=== PATIENT | female | born 2005 | race Hispanic/Latino ===

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

== ENCOUNTER 2024-02-06 20:12 | Emergency (ER) | payer OTHER ==
[~2024-02-06] VITALS: Ht 154.9 cm; Wt 82.1 kg
[~2024-02-06 20:12] MED LIST changes: +AMOX1TAB16 PO
[2024-02-06 20:35] LABS: APPEARANCE,URINE TURBID (CLEAR); BILIRUBIN,URINE NEGATIVE (NEGATIVE); COLOR,URINE YELLOW (YELLOW); GLUCOSE, URINE (UA) NEGATIVE (NEGATIVE); KETONES,URINE NEGATIVE (NEGATIVE); LEUKOCYTE ESTERASE ,URINE 500 Leu/uL (NEGATIVE); NITRATE,URINE NEGATIVE (NEGATIVE); OCCULT BLOOD,URINE MODERATE (NEGATIVE); PROTEIN,URINE 30 mg/dL (NEGATIVE); UROBILINOGEN,URINE 0.2 mg/dL (0.2-1.0)
[2024-02-06 20:43] LABS: ADD UA MICROSCOPIC YES; HCG,QUALITATIVE URINE POSITIVE (NEGATIVE)
[2024-02-06 20:53] LABS: BACTERIA,URINE FEW /HPF (None Seen); MUCUS,URINE RARE LPF (None Seen); NON-SQUAMOUS EPITHELIAL CELL 1 /HPF (0-2); RBC,URINE 51-100 /HPF (0-1); SQUAMOUS EPITHELIAL CELL,UR FEW /HPF (0-2); WBC CLUMP FEW /HPF (0-1); WBC,URINE >100 /HPF (0-1)
[2024-02-06 21:09] LABS: BASOPHILS # (AUTO) 0.04 K/uL (0.00-0.20); BASOPHILS % (AUTO) 0.4 % (0.0-5.0); IMMATURE GRANULOCYTE ABSOLUTE 0.04 K/uL (0-1); LYMPHOCYTES # (AUTO) 1.5 K/uL (1.0-4.8); LYMPHOCYTES % (AUTO) 13.3 % (21.0-51.0); MEAN CORPUSCULAR HEMOGLOBIN 24.5 pg (27.0-33.0); MEAN CORPUSCULAR HGB CONC 32.2 g/dL (32.0-36.0); MEAN CORPUSCULAR VOLUME 76.3 fL (80-100); MONOCYTES % (AUTO) 9.1 % (3.0-13.0); NEUTROPHILS # (AUTO) 8.5 K/uL (1.8-7.7); NEUTROPHILS % (AUTO) 76.8 % (40.0-77.0); PLATELET COUNT (AUTO) 344 K/uL (130-400); RED BLOOD CELL COUNT(AUTO) 4.85 MIL/uL (4.00-5.50); RED CELL DISTRIBUTION WIDTH 15.5 % (11.0-15.5)
[2024-02-06] MEDS: ONDANSETRON 4MG INJ IVP ONE (21:12)
[2024-02-06 21:13] VITALS: TEMP 100.8
[2024-02-06] MEDS: ACETAMINOPHEN 500 MG TABLET PO ONE (21:13)
[2024-02-06] MEDS: MORPHINE 2 MG SYG IVP ONE (21:14)
[2024-02-06] MEDS: 0.9%NACL 1000ML 1,000 ML IV ONE (21:15)
[2024-02-06 21:21] LABS: CREATININE 0.8 mg/dL (0.5-1.0); POTASSIUM 3.3 mmol/L (3.5-5.1)
[2024-02-06 21:26] LABS: ALBUMIN 3.6 g/dL (3.5-5.0); BILIRUBIN,TOTAL 0.3 mg/dL (0.2-1.0); TOTAL PROTEIN, SERUM 8.6 g/dL (6.0-8.3)
[2024-02-06] MEDS: CEFTRIAXONE 1G VIAL IVPB ONE (22:07)
[2024-02-07] MEDS ORDERED: CEPH500B PO (01:10)
[2024-02-07 01:25] VITALS: BP 128/72; PULSE 72; RESP 16; O2SAT 100
== END 2024-02-07 01:28 | disposition home or self-care (01) ==
LOC: EDH 20:12
DX: O20.0 Threatened abortion (principal); O20.9 Hemorrhage in early pregnancy, unspecified; O26.891 Other specified pregnancy related conditions, first trimester; R50.9 Fever, unspecified; K80.20 Calculus of gallbladder without cholecystitis without obstruction; E87.6 Hypokalemia; O23.41 Unspecified infection of urinary tract in pregnancy, first trimester; N39.0 Urinary tract infection, site not specified; O16.1 Unspecified maternal hypertension, first trimester; Z3A.01 Less than 8 weeks gestation of pregnancy
CPT/HCPCS: 99285; 76705 ×2; 96374; 76801; 96375; 96361; 80053; 84702; 83690; 85025; 86900; 86901; 87040 ×2; 87077; 87088; 87186; 83605 ×2; 81001; 81025; 36415 ×2; 84145; J2270; J7030; J0696; J2405

== ENCOUNTER 2024-09-17 15:36 | Emergency (ER) | payer SELFPAY ==
[~2024-09-17] VITALS: Ht 154.9 cm; Wt 81.2 kg
[~2024-09-17 15:36] MED LIST changes: +CEPH500B PO
[2024-09-17 16:18] LABS: APPEARANCE,URINE CLOUDY (CLEAR); BILIRUBIN,URINE NEGATIVE (NEGATIVE); COLOR,URINE LIGHT-YELLOW (YELLOW); GLUCOSE, URINE (UA) NEGATIVE (NEGATIVE); HCG,QUALITATIVE URINE POSITIVE (NEGATIVE); KETONES,URINE NEGATIVE (NEGATIVE); LEUKOCYTE ESTERASE ,URINE 75 Leu/uL (NEGATIVE); NITRATE,URINE 2+ (NEGATIVE); OCCULT BLOOD,URINE NEGATIVE (NEGATIVE); PH,URINE 6.5 (5.0-8.0); PROTEIN,URINE NEGATIVE (NEGATIVE); UROBILINOGEN,URINE 0.2 mg/dL (0.2-1.0)
[2024-09-17 16:19] LABS: ADD UA MICROSCOPIC YES
[2024-09-17 16:23] LABS: BACTERIA,URINE FEW /HPF (None Seen); MUCUS,URINE RARE LPF (None Seen); RBC,URINE 0-1 /HPF (0-1); SQUAMOUS EPITHELIAL CELL,UR RARE /HPF (0-2); YEAST,URINE BUDDING FEW /HPF (None Seen)
[2024-09-17 16:39] LABS: BASOPHILS # (AUTO) 0.04 K/uL (0.00-0.20); BASOPHILS % (AUTO) 0.5 % (0.0-5.0); EOSINOPHILS # (AUTO) 0.04 K/uL (0.00-0.70); EOSINOPHILS % (AUTO) 0.5 % (0.0-8.0); HEMATOCRIT 40.4 % (36-48); IMMATURE GRANULOCYTE ABSOLUTE 0.03 K/uL (0-1); LYMPHOCYTES # (AUTO) 1.8 K/uL (1.0-4.8); LYMPHOCYTES % (AUTO) 24.1 % (21.0-51.0); MEAN CORPUSCULAR HEMOGLOBIN 25.4 pg (27.0-33.0); MEAN CORPUSCULAR HGB CONC 32.4 g/dL (32.0-36.0); MEAN CORPUSCULAR VOLUME 78.3 fL (80-100); MONOCYTES # (AUTO) 0.5 K/uL (0.1-1.0); MONOCYTES % (AUTO) 7.1 % (3.0-13.0); NEUTROPHILS # (AUTO) 4.9 K/uL (1.8-7.7); NEUTROPHILS % (AUTO) 67.4 % (40.0-77.0); PLATELET COUNT (AUTO) 333 K/uL (130-400); RED BLOOD CELL COUNT(AUTO) 5.16 MIL/uL (4.00-5.50); RED CELL DISTRIBUTION WIDTH 15.7 % (11.0-15.5); WHITE BLOOD COUNT (AUTO) 7.3 K/uL (4.8-10.8)
[2024-09-17 16:50] LABS: CREATININE 0.6 mg/dL (0.5-1.0); POTASSIUM 3.7 mmol/L (3.5-5.1)
[2024-09-17 16:57] LABS: ALBUMIN 3.6 g/dL (3.5-5.0); BILIRUBIN,DIRECT 0.1 mg/dL (0.0-0.3); BILIRUBIN,TOTAL 0.6 mg/dL (0.2-1.0); TOTAL PROTEIN, SERUM 8.2 g/dL (6.0-8.3)
--- NOTE | 2024-09-17 17:56 | ERN ---
ED Note History of Present Illness Stated Complaint: ABDOMINAL PAIN,NAUSEA, MULTIPLE COMPLAINTS Chief Complaint: Abdominal Pain Time Seen by MD: 15:57 Dictation: 18-year-old female presents to the ED for evaluation of abdominal pain onset last night. Patient reports nausea, vomiting, but denies any fever, vaginal bleeding or other associated symptoms at this time.. Allergies: Coded Allergies: No Known Allergies (Unverified Allergy, Unknown, 04/26/22) Home Meds Active Scripts Cephalexin Monohydrate (Keflex) 500 Mg Cap, 500 MG PO BID for 5 Days, #10 CAP Prov:CYNTHIA CARRERA MD 02/07/24 Amoxicillin/Potassium Clav (Amox Tr-K Clv 875-125 mg Tab) 875 Mg-125 Mg Tablet, 1 EACH PO BID for 7 Days, #14 TAB 0 Refills Prov:LUZMA PIERRE NP 12/11/23 Ibuprofen (Ibuprofen) 400 Mg Tablet, 400 MG PO Q6HPRN, #15 TAB 0 Refills Prov:JOYCE BRENNAN NP 02/27/23 Amoxicillin/Potassium Clav (Augmentin 500-125 Tablet) 1 Each Tablet, 1 EACH PO TID for 7 Days, #21 TAB Prov:JOYCE BRENNAN NP 02/27/23 Ibuprofen (Ibuprofen) 600 Mg Tablet, 600 MG PO Q6H PRN for PAIN, #15 TAB Prov:KATHERINE DEL CASTILLOP 10/19/22 Sulfamethoxazole/Trimethoprim (Bactrim Ds Tablet) 1 Each Tablet, 1 TAB PO BID for 7 Days, #14 TAB 0 Refills Prov:KATHERINE DEL CASTILLOP 10/19/22 Acetaminophen with Codeine (Acetaminophen-Cod #3 Tablet) 1 Each Tablet, 1-2 TAB PO Q6H PRN for woody anal abscess, #20 TAB Prov:ANN GAINES 04/26/22 Clindamycin HCl (Clindamycin HCl) 300 Mg Capsule, 1 CAP PO QID for 10 Days, #40 CAP 0 Refills Prov:ANN GAINES 04/26/22 Past Medical History Past Medical History: Hypertension Surgical History: None Family History: Negative Social History: Negative History: Not Applicable LMP: Jun 12, 2024 : 1 Para: 0 Review of System Dictation Constitutional: Negative for fever,chills, and weight loss Eyes: Negative for injury, pain,redness, and discharge ENT: Negative for injury,pain or swelling Cardiovascular: Negative for chest pain, palpitations, and edema Respiratory: Negative for shortness of breath, cough, and wheezing, Abdomen/GI: Positive for lower abdominal pain, nausea, vomiting negative for diarrhea, and constipation Back: Negative for injury and pain : Negative for injury, bleeding and discharge MS/Extremity: Negative for injury and deformity Skin: Negative for rash, and discoloration Neuro: Negative for headache, weakness, numbness, tingling, and seizure Psych: Negative for suicide ideation, homicidal ideation, and hallucinations Initial Vital Sign VS Vital Signs Date Time Temp Pulse Resp B/P (MAP) Pulse Ox O2 Delivery O2 Flow Rate FiO2 09/17/24 15:52 98.4 82 16 174/98 96 Room Air 0 Physical Exam Dictation General: awake, alert, NAD Head/Face: Normocephalic, atraumatic Eyes: PERRL, EOMI, vision at baseline ENT: oral cavity clear, TMs clear, no signs of infection Neck: Trachea midline, supple, no nuchal rigidity Cardiovascular: RRR, normal S1/S2, No MRGs, no JVD Respiratory: CTAB, no respiratory distress, No rales or wheezes Abdomen: Soft, non-tender, non-distended, normal bowel sounds, no guarding or rebound. Skin: Warm, dry, normal turgor, no rash MS/Extremity: Pulses equal, no cyanosis, neurovascular intact, FROM Neuro: COAx4, GCS 15, strength 5/5, CN 2-12 intact, normal cerebellar exam, normal gait, Psych: Normal behavior, mood, and affect normal Results (Laboratory/Radiology) Laboratory/Radiology Laboratory Tests Test 09/17/24 15:58 09/17/24 16:24 Urine Color LIGHT-YELLOW (YELLOW) Urine Appearance CLOUDY (CLEAR) H Urine pH 6.5 (5.0-8.0) Urine Specific [place] 1.020 (1.001-1.031) Urine Protein NEGATIVE mg/dL (NEGATIVE) Urine Glucose (UA) NEGATIVE mg/dL (NEGATIVE) Urine Ketones NEGATIVE mg/dL (NEGATIVE) Urine Occult Blood NEGATIVE (NEGATIVE) Urine Nitrate 2+ (NEGATIVE) H Urine Bilirubin NEGATIVE mg/dL (NEGATIVE) Urine Urobilinogen 0.2 mg/dL (0.2-1.0) Urine Leukocyte Esterase 75 Kaylyn/uL (NEGATIVE) H Urine RBC 0-1 /HPF (0-1) Urine WBC 11-25 /HPF (0-1) H Urine Squamous Epithelial Cells RARE /HPF (0-2) Urine Bacteria FEW /HPF (None Seen) Urine Yeast FEW /HPF (None Seen) Urine HCG, Qualitative POSITIVE (NEGATIVE) H White Blood Count 7.3 K/uL (4.8-10.8) Red Blood Count 5.16 MIL/uL (4.00-5.50) Hemoglobin 13.1 g/dL (12.0-16.0) Hematocrit 40.4 % (36-48) Mean Corpuscular Volume 78.3 fL (80-100) L Mean Corpuscular Hemoglobin 25.4 pg (27.0-33.0) L Mean Corpuscular Hemoglobin Concent 32.4 g/dL (32.0-36.0) Red Cell Distribution Width 15.7 % (11.0-15.5) H Platelet Count 333 K/uL (130-400) Mean Platelet Volume 10.0 fL (7.5-10.5) Immature Granulocyte % (Auto) 0.4 % (0-1) Neutrophils (%) (Auto) 67.4 % (40.0-77.0) Lymphocytes (%) (Auto) 24.1 % (21.0-51.0) Monocytes (%) (Auto) 7.1 % (3.0-13.0) Eosinophils (%) (Auto) 0.5 % (0.0-8.0) Basophils (%) (Auto) 0.5 % (0.0-5.0) Neutrophils # (Auto) 4.9 K/uL (1.8-7.7) Lymphocytes # (Auto) 1.8 K/uL (1.0-4.8) Monocytes # (Auto) 0.5 K/uL (0.1-1.0) Eosinophils # (Auto) 0.04 K/uL (0.00-0.70) Basophils # (Auto) 0.04 K/uL (0.00-0.20) Absolute Immature Granulocyte (auto 0.03 K/uL (0-1) Nucleated Red Blood Cells 0.0 % (0.0-0.19) Sodium Level 137 mmol/L (136-145) Potassium Level 3.7 mmol/L (3.5-5.1) Chloride Level 101 mmol/L (101-111) Carbon Dioxide Level 25 mmol/L (21-32) Blood Urea Nitrogen 5 mg/dL (7-18) L Creatinine 0.6 mg/dL (0.5-1.0) Glomerular Filtration Rate Calc 133 mL/min (>90) Random Glucose 86 mg/dL (70-105) Total Calcium 9.3 mg/dL (8.5-10.1) Total Bilirubin 0.6 mg/dL (0.2-1.0) Direct Bilirubin 0.1 mg/dL (0.0-0.3) Aspartate Amino Transf (AST/SGOT) 15 U/L (10-37) Alanine Aminotransferase (ALT/SGPT) 18 U/L (12-78) Alkaline Phosphatase 96 U/L (50-136) Total Protein 8.2 g/dL (6.0-8.3) Albumin 3.6 g/dL (3.5-5.0) Lipase 23 U/L (16-77) Labs Reviewed?: Yes Ultrasound Comment: As per restoration technician patient is six weeks gestation. ED Course ED Course Orders Procedure Category Date Status Time Urinalysis Profile LAB 09/17/24 Complete 15:59 ,Urine Test LAB 09/17/24 Complete 15:59 Cbc With Differential LAB 09/17/24 Complete 16:03 Hepatic Function Panel LAB 09/17/24 Complete 16:03 Basic Metabolic Panel LAB 09/17/24 Complete 16:03 Lipase LAB 09/17/24 Complete 16:03 Culture Urine TOÑA 09/17/24 In Process 16:19 Hcg,Quantitative LAB 09/17/24 In Process 17:39 Us Ob <14 Weeks US 09/17/24 Resulted 17:39 Vital Signs Date Time Temp Pulse Resp B/P (MAP) Pulse Ox O2 Delivery O2 Flow Rate FiO2 09/17/24 15:52 98.4 82 16 174/98 96 Room Air 0 Medical Decision Making MDM MDM: Differential diagnosis: Abdominal pain, , threatened Risk of complication and/or morbidity or mortality of patient management: None Medications-Per medication reconciliation Need for hospitalization: Patient does not meet criteria for hospitalization. Need for emergency major/minor surgery: No There are no social concerns with this patient. I independently interpreted the test that were performed, results were reviewed by me and considered findings on radiology if ordered. Medical management and examination interpretation discussions were had by me with other qualified healthcare professionals as indicated for the patient's care. DX & DISP Disposition: Discharge Departure Impression: Primary Impression: Threatened Condition: Stable Referrals: SELF,REFERRAL (PCP) GRETTA DAWKINS MD Time of Disposition: 18:33 ELIZABETH FERREIRA MD Sep 17, 2024 17:56
--- NOTE | 2024-09-17 18:33 | HMCIMG ---
US OB <14 WEEKS HISTORY: Pelvic pain COMPARISON: None TECHNIQUE: Obstetrical ultrasound study was performed. FINDINGS: The uterus measures 9.5 x 6.5 x 4.5 centimeter. Right ovary measures 2.5 x 2 x 1.8 centimeter. Left ovary measures 2.9 x 1.4 x 2.5 centimeter. There is intrauterine saclike structure. In a patient with positive test, differential diagnosis would include early versus ectopic versus missed . Estimated gestational age by sac size is 6 weeks and 2 days. Beta-hCG correlation is recommended. No fluid is seen in the cul-de-sac. IMPRESSION: 1. There is intrauterine saclike structure. In a patient with positive test, differential diagnosis would include early versus ectopic versus missed . Estimated gestational age by sac size is 6 weeks and 2 days. Beta-hCG correlation is recommended.
--- NOTE | 2024-09-17 18:39 | NUR ---
pt arrived ft at this time
[2024-09-17 18:51] VITALS: BP 172/90; PULSE 80; RESP 16; TEMP 98.3; O2SAT 98
== END 2024-09-17 19:09 | disposition home or self-care (01) ==
LOC: EDH 15:36
DX: O20.0 Threatened abortion (principal); Z3A.01 Less than 8 weeks gestation of pregnancy
CPT/HCPCS: 36415; 76801; 80048; 80076; 81001; 81025; 83690; 84702; 85025; 87086; 87186; 99284

== ENCOUNTER 2024-09-29 20:53 | Emergency (ER) | payer MEDICAID ==
[~2024-09-29] VITALS: Ht 154.9 cm; Wt 78.5 kg
[2024-09-29 20:54] VITALS: TEMP 98.3
--- NOTE | 2024-09-29 21:07 | NUR ---
PT CARE ASSUMED AT THIS TIME
--- NOTE | 2024-09-29 21:29 | ERN ---
ED Note History of Present Illness Stated Complaint: ABDOMINAL PAIN, 7WKS Chief Complaint: OB<20 weeks gest. Time Seen by MD: 21:03 Dictation: This is a 18-year-old female who is approximately 8 weeks presented to the emergency room with suprapubic lower abdominal pain associated with vaginal bleeding. She reports it as a cramping pain that started around 3:00 p.m. and since then she has used 2 pads. The bleeding initially started on 09/26/2024 at which time it was simple spotting. She is 2 para 1. She denied any such problems during her 1st . Temperature 98.3 pulse 82 respirations 20 blood pressure 149/96 with a pulse o ximetry of 98% on room air Ultrasound there was done on 09/17/2024 shows a fetus and gestation of 6 weeks and 2 days. She was actively cramping with large amounts of vaginal bleeding seeping through the clothes and sheets Allergies: Coded Allergies: No Known Allergies (Unverified Allergy, Unknown, 04/26/22) Home Meds Active Scripts Acetaminophen with Codeine (Acetaminophen-Cod #3 Tablet) 300 Mg-30 Mg Tablet, 1 TAB PO Q6HPRN PRN for pain for 5 Days, #20 TAB 0 Refills Prov:ANDREA TY MD 09/30/24 Cephalexin Monohydrate (Keflex) 500 Mg Cap, 500 MG PO BID for 5 Days, #10 CAP Prov:CYNHTIA CARRERA MD 02/07/24 Amoxicillin/Potassium Clav (Amox Tr-K Clv 875-125 mg Tab) 875 Mg-125 Mg Tablet, 1 EACH PO BID for 7 Days, #14 TAB 0 Refills Prov:LUZMA PIERRE NP 12/11/23 Ibuprofen (Ibuprofen) 400 Mg Tablet, 400 MG PO Q6HPRN, #15 TAB 0 Refills Prov:JOYCE BRENNAN NP 02/27/23 Amoxicillin/Potassium Clav (Augmentin 500-125 Tablet) 1 Each Tablet, 1 EACH PO TID for 7 Days, #21 TAB Prov:JOYCE BRENNAN NP 02/27/23 Ibuprofen (Ibuprofen) 600 Mg Tablet, 600 MG PO Q6H PRN for PAIN, #15 TAB Prov:KATHERINE DEL CASTILLO 10/19/22 Sulfamethoxazole/Trimethoprim (Bactrim Ds Tablet) 1 Each Tablet, 1 TAB PO BID for 7 Days, #14 TAB 0 Refills Prov:BANDAR DEL CASTILLOGAUDENCIO LINO 10/19/22 Acetaminophen with Codeine (Acetaminophen-Cod #3 Tablet) 1 Each Tablet, 1-2 TAB PO Q6H PRN for woody anal abscess, #20 TAB Prov:GAINESANN PA 04/26/22 Clindamycin HCl (Clindamycin HCl) 300 Mg Capsule, 1 CAP PO QID for 10 Days, #40 CAP 0 Refills Prov:GAINESANN PA 04/26/22 Past Medical History Past Medical History: No Pertinent History Surgical History: Tonsillectomy Family History: Negative Social History: Negative History: Not Applicable LMP: May 31, 2024 : 2 Para: 1 RN Note Reviewed/Agreed w/PFSH: Yes Review of System Dictation Constitutional: Negative for fever,chills, and weight loss Eyes: Negative for injury, pain,redness, and discharge ENT: Negative for injury,pain or swelling Cardiovascular: Negative for chest pain, palpitations, and edema Respiratory: Negative for shortness of breath, cough, and wheezing, Abdomen/GI: Negative for abdominal pain, nausea, vomiting, diarrhea, and constipation Back: Negative for injury and pain : Positive for vaginal bleeding and suprapubic pain MS/Extremity: Negative for injury and deformity Skin: Negative for rash, and discoloration Neuro: Negative for headache, weakness, numbness, tingling, and seizure Psych: Negative for suicide ideation, homicidal ideation, and hallucinations Initial Vital Sign VS Vital Signs Date Time Temp Pulse Resp B/P (MAP) Pulse Ox O2 Delivery O2 Flow Rate FiO2 09/29/24 20:54 98.2 82 20 149/96 100 Room Air 09/29/24 21:07 0 21 Physical Exam Dictation General: awake, alert, NAD overweight Head/Face: Normocephalic, atraumatic Eyes: PERRL, EOMI, vision at baseline ENT: oral cavity clear, TMs clear, no signs of infection Neck: Trachea midline, supple, no nuchal rigidity Cardiovascular: RRR, normal S1/S2, No MRGs, no JVD Respiratory: CTAB, no respiratory distress, No rales or wheezes Abdomen: Soft, non-tender, non-distended, normal bowel sounds, no guarding or rebound. Skin: Warm, dry, normal turgor, no rash -vaginal bleeding. Patient was extremely uncomfortable with any pelvic exam. MS/Extremity: Pulses equal, no cyanosis, neurovascular intact, FROM Neuro: COAx4, GCS 15, strength 5/5, CN 2-12 intact, normal cerebellar exam, normal gait, Psych: Normal behavior, mood, and affect normal Extremities-trace edema without any palpable cords, Homans sign is negative Results (Laboratory/Radiology) Laboratory/Radiology Laboratory Tests Test 09/29/24 21:28 09/29/24 22:25 White Blood Count 7.2 K/uL (4.8-10.8) Red Blood Count 4.83 MIL/uL (4.00-5.50) Hemoglobin 12.2 g/dL (12.0-16.0) Hematocrit 37.7 % (36-48) Mean Corpuscular Volume 78.1 fL (80-100) L Mean Corpuscular Hemoglobin 25.3 pg (27.0-33.0) L Mean Corpuscular Hemoglobin Concent 32.4 g/dL (32.0-36.0) Red Cell Distribution Width 15.4 % (11.0-15.5) Platelet Count 334 K/uL (130-400) Mean Platelet Volume 10.0 fL (7.5-10.5) Immature Granulocyte % (Auto) 0.7 % (0-1) Neutrophils (%) (Auto) 56.1 % (40.0-77.0) Lymphocytes (%) (Auto) 31.8 % (21.0-51.0) Monocytes (%) (Auto) 9.5 % (3.0-13.0) Eosinophils (%) (Auto) 1.3 % (0.0-8.0) Basophils (%) (Auto) 0.6 % (0.0-5.0) Neutrophils # (Auto) 4.0 K/uL (1.8-7.7) Lymphocytes # (Auto) 2.3 K/uL (1.0-4.8) Monocytes # (Auto) 0.7 K/uL (0.1-1.0) Eosinophils # (Auto) 0.09 K/uL (0.00-0.70) Basophils # (Auto) 0.04 K/uL (0.00-0.20) Absolute Immature Granulocyte (auto 0.05 K/uL (0-1) Nucleated Red Blood Cells 0.0 % (0.0-0.19) Sodium Level 135 mmol/L (136-145) L Potassium Level 3.3 mmol/L (3.5-5.1) L Chloride Level 102 mmol/L (101-111) Carbon Dioxide Level 28 mmol/L (21-32) Blood Urea Nitrogen 6 mg/dL (7-18) L Creatinine 0.8 mg/dL (0.5-1.0) Glomerular Filtration Rate Calc 109 mL/min (>90) Random Glucose 98 mg/dL (70-105) Total Calcium 8.9 mg/dL (8.5-10.1) Serum Test, Qualitative POSITIVE (NEGATIVE) H Urine Color LIGHT-YELLOW (YELLOW) Urine Appearance CLEAR (CLEAR) Urine pH 6.0 (5.0-8.0) Urine Specific [place] 1.010 (1.001-1.031) Urine Protein NEGATIVE mg/dL (NEGATIVE) Urine Glucose (UA) NEGATIVE mg/dL (NEGATIVE) Urine Ketones NEGATIVE mg/dL (NEGATIVE) Urine Occult Blood LARGE (NEGATIVE) H Urine Nitrate NEGATIVE (NEGATIVE) Urine Bilirubin NEGATIVE mg/dL (NEGATIVE) Urine Urobilinogen 0.2 mg/dL (0.2-1.0) Urine Leukocyte Esterase NEGATIVE Kaylyn/uL Urine RBC TNTC /HPF (0-1) H Urine WBC 0-1 /HPF (0-1) Urine Squamous Epithelial Cells RARE /HPF (0-2) Urine Bacteria FEW /HPF (None Seen) Labs Reviewed?: Yes ED Course ED Course Orders Procedure Category Date Status Time Cbc With Differential LAB 09/29/24 Complete 21:13 Testing, LAB 09/29/24 Complete Serum Hcg 21:13 Us Ob <14 Weeks US 09/29/24 Taken 21:13 0.9%Nacl 1000ml (Ns PHA 09/29/24 Complete 1000ml) 21:30 Morphine 4mg Syg PHA 09/29/24 Complete (Morphine 4mg Syg) 21:30 Ondansetron 4mg Inj PHA 09/29/24 Complete (Zofran 4mg Inj) 21:30 Basic Metabolic Panel LAB 09/29/24 Complete 21:13 Urinalysis Profile LAB 09/29/24 Complete 21:13 Morphine 4mg Syg PHA 09/29/24 Complete (Morphine 4mg Syg) 23:00 Current Medications Medications (Trade) Dose Ordered Sig/Marge Route PRN Reason Start Time Stop Time Status Last Admin Dose Admin Morphine Sulfate (morPHINE 4MG SYG) 2 mg ONCE ONCE IVP 09/29/24 21:30 09/29/24 21:31 DC 09/29/24 21:39 Morphine Sulfate (morPHINE 4MG SYG) 4 mg ONCE ONCE IVP 09/29/24 23:00 09/29/24 23:02 DC 09/29/24 22:42 Ondansetron HCl (zoFRAN 4MG INJ) 4 mg ONCE ONCE IVP 09/29/24 21:30 09/29/24 21:31 DC 09/29/24 21:38 Sodium Chloride 1,000 ml @ 0 mls/hr ONCE ONCE IV 09/29/24 21:30 09/29/24 21:31 DC 09/29/24 21:38 Vital Signs Date Time Temp Pulse Resp B/P (MAP) Pulse Ox O2 Delivery O2 Flow Rate FiO2 09/30/24 01:01 76 19 118/96 99 Room Air* 0 09/29/24 23:40 95 19 119/69 99 Room Air* 0 21 09/29/24 22:44 86 19 117/96 99 Room Air* 0 21 09/29/24 21:07 98 19 142/91 99 Room Air* 0 09/29/24 20:54 98.2 82 20 149/96 100 Room Air We will perform diagnostic labs, advanced imaging and administer medications according to the patient's complaint. Once the results are available, will review and personally interpreted the labs to rule out any acute life- threatening emergency the trach require immediate intervention and treatment. I will then re-evaluate the patient after treatment and diagnostic exams have return to determine whether the patient requires any further testing, can safely be discharged home or need further admission to hospital for additional treatment and evaluation. 10:13 p.m. labs reviewed CBC showed a white count of 7.2 platelets 334, hemoglobin 12.2 BNP 7 showed a potassium of 3.3 creatinine 0.8 hCG test is positive OB ultrasound showed irregular heterogeneous 1.9 cm material and some blood versus a sac which is 1.5 x 1.2 x 1 cm. Cul-de-sac appeared normal the overall preliminary impression was that in the vaginal area there was irregular heterogeneous possible products of conception versus blood clot. Cervical canal open 12:15 a.m. I had a long discussion with the patient and her significant other and explained to them possibilities that this maybe a loss in process or perhaps subchorionic hemorrhage. Discharge to home to follow up with the Dr. Dawkins as outpatient once her Medicaid is processed or return to the emergency room with any new complaints. They both were agreeable Medical Decision Making MDM MDM: Differential diagnosis: Implantation bleeding, subchorionic hemorrhage, threat of Rationale: Tests considered and ordered secondary to shared decision making include: Previous outside records reviewed: Old ER visits. Risk of complication and/or morbidity or mortality of patient management: None Medications-Per medication reconciliation Need for hospitalization: Patient does not meet criteria for hospitalization. Need for emergency major/minor surgery: No There are no social concerns with this patient. Prescription drug management Prescriptions will include symptomatic care Patient's prior external medical records from other ER visits were reviewed by me as indicated. Prior testing and results from previous visits were reviewed. Prior tests were taken into account with medical decision making and resource utilization, independent historian/historians were used to obtain complete medical history. I independently interpreted the test that were performed, results were reviewed by me and considered findings on radiology if ordered. Medical management and examination interpretation discussions were had by me with other qualified healthcare professionals as indicated for the patient's care. Problem List Problem List: (1) Vaginal bleeding (2) Threatened DX & DISP Disposition: Discharge Departure Impression: Primary Impression: Threatened Additional Impression: Vaginal bleeding Condition: Stable Scripts Acetaminophen with Codeine (Acetaminophen-Cod #3 Tablet) 300 Mg-30 Mg Tablet 1 TAB PO Q6HPRN PRN for pain for 5 Days, #20 TAB 0 Refills Prov: ANDREA TY MD 09/30/24 Additional Instructions: Patient and the caregiver have been informed of all the diagnostic tests and the imaging conducted during the today's visit to the emergency room and has verbalized understanding of the results I have personally reviewed and interpreted all diagnostic exams performed here in the ER today as well as the vital signs documented by the nursing staff. The patient is now being discharged to home and should follow up with the primary care physician or the specialist as directed by the ER staff. Follow-up with primary care provider in 1 to 2 days. Take medications as directed here in the emergency room. Okay to continue home medications unless otherwise discussed during your visit in the emergency room today. Return to your nearest emergency room if symptoms worsen or if there is no improvement. Call 911 if you need immediate assistance. Take Tylenol or Motrin over-the- counter as needed and if no contraindications are present. Increase oral hydration. A wound culture or urine culture was ordered here in the emergency room department please follow-up with primary care provider and advise them to get repeat ports from our facility. If you had any Willis wrap/splints that were applied here, please do not remove them until you see your primary care or specialty. Referrals: SELF,REFERRAL (PCP) MATEUS DAWKINS ANURADHA R MD Sep 29, 2024 21:28
[2024-09-29] MEDS: ondanSETRON 4MG INJ IVP ONE (21:38)
[2024-09-29] MEDS: 0.9%NACL 1000ML 1,000 ML IV ONE (21:38)
[2024-09-29] MEDS: morPHINE 4 MG SYG IVP ONE ×2 (21:39→22:42)
[2024-09-29 21:41] LABS: BASOPHILS # (AUTO) 0.04 K/uL (0.00-0.20); BASOPHILS % (AUTO) 0.6 % (0.0-5.0); EOSINOPHILS # (AUTO) 0.09 K/uL (0.00-0.70); EOSINOPHILS % (AUTO) 1.3 % (0.0-8.0); HEMATOCRIT 37.7 % (36-48); IMMATURE GRANULOCYTE ABSOLUTE 0.05 K/uL (0-1); LYMPHOCYTES # (AUTO) 2.3 K/uL (1.0-4.8); LYMPHOCYTES % (AUTO) 31.8 % (21.0-51.0); MEAN CORPUSCULAR HEMOGLOBIN 25.3 pg (27.0-33.0); MEAN CORPUSCULAR HGB CONC 32.4 g/dL (32.0-36.0); MEAN CORPUSCULAR VOLUME 78.1 fL (80-100); MONOCYTES # (AUTO) 0.7 K/uL (0.1-1.0); MONOCYTES % (AUTO) 9.5 % (3.0-13.0); NEUTROPHILS % (AUTO) 56.1 % (40.0-77.0); PLATELET COUNT (AUTO) 334 K/uL (130-400); RED BLOOD CELL COUNT(AUTO) 4.83 MIL/uL (4.00-5.50); RED CELL DISTRIBUTION WIDTH 15.4 % (11.0-15.5); WHITE BLOOD COUNT (AUTO) 7.2 K/uL (4.8-10.8)
[2024-09-29 21:54] LABS: CREATININE 0.8 mg/dL (0.5-1.0); POTASSIUM 3.3 mmol/L (3.5-5.1)
[2024-09-29 22:47] LABS: APPEARANCE,URINE CLEAR (CLEAR); BILIRUBIN,URINE NEGATIVE (NEGATIVE); COLOR,URINE LIGHT-YELLOW (YELLOW); GLUCOSE, URINE (UA) NEGATIVE (NEGATIVE); KETONES,URINE NEGATIVE (NEGATIVE); LEUKOCYTE ESTERASE ,URINE NEGATIVE Leu/uL (NEGATIVE); NITRATE,URINE NEGATIVE (NEGATIVE); OCCULT BLOOD,URINE LARGE (NEGATIVE); PROTEIN,URINE NEGATIVE (NEGATIVE); UROBILINOGEN,URINE 0.2 mg/dL (0.2-1.0)
[2024-09-29 22:53] LABS: ADD UA MICROSCOPIC YES
[2024-09-29 22:56] LABS: BACTERIA,URINE FEW /HPF (None Seen); MUCUS,URINE RARE LPF (None Seen); RBC,URINE TNTC /HPF (0-1); SQUAMOUS EPITHELIAL CELL,UR RARE /HPF (0-2); WBC,URINE 0-1 /HPF (0-1)
[2024-09-30] MEDS ORDERED: ACET-2079 PO (00:52)
[2024-09-30 01:01] VITALS: BP 118/96; PULSE 76; RESP 19; O2SAT 99
--- NOTE | 2024-09-30 08:34 | HMCIMG ---
Exam Type: US OB <14 WEEKS Clinical Information: VAGINAL BLEEDING Comparison: None Findings and impression: Uterus is anteverted. It shows a fluid-filled structure apparently implanted low. If it represents a gestational sac implantation is suggestive of a nonviable . Possible subchorionic bleed is seen adjacent to it and there is also material within the vaginal canal which suggests hemorrhage or products of conception. The ovaries are unremarkable.
== END 2024-09-30 01:04 | disposition home or self-care (01) ==
LOC: EDH 20:53
DX: O20.0 Threatened abortion (principal); Z3A.01 Less than 8 weeks gestation of pregnancy; Z90.89 Acquired absence of other organs; Z79.899 Other long term (current) drug therapy
CPT/HCPCS: 99285; 96374; 76801; 96375; 80048; 84703; 85025; 81001; 36415; 96376; J2405; J2270 ×2

== ENCOUNTER 2025-01-26 14:41 | Emergency (ER) | payer MEDICAID ==
[~2025-01-26] VITALS: Ht 154.9 cm; Wt 90.7 kg
--- NOTE | 2025-01-26 15:01 | ERN ---
ED Note History of Present Illness Stated Complaint: VOMITING, Chief Complaint: Vomiting in Time Seen by MD: 14:43 Dictation: PATIENT IS A 19-YEAR-OLD FEMALE COMING IN TODAY WITH NAUSEA VOMITING, HAVING DIFFICULTY KEEPING FOOD DOWN FOR 3-4 DAYS. SHE STATES SHE IS APPROXIMATELY 10- 11 WEEKS , GP1 PATIENT HAD DR. DAWKINS. SHE DENIES FEVER CHILLS NO CHANGE IN URINATION NO VAGINAL BLEEDING NO CONTRACTIONS. Allergies: Coded Allergies: No Known Allergies (Unverified Allergy, Unknown, 04/26/22) Home Meds Active Scripts Acetaminophen with Codeine (Acetaminophen-Cod #3 Tablet) 300 Mg-30 Mg Tablet, 1 TAB PO Q6HPRN PRN for pain for 5 Days, #20 TAB 0 Refills Prov:ANDREA TY MD 09/30/24 Cephalexin Monohydrate (Keflex) 500 Mg Cap, 500 MG PO BID for 5 Days, #10 CAP Prov:CYNTHIA CARRERA MD 02/07/24 Amoxicillin/Potassium Clav (Amox Tr-K Clv 875-125 mg Tab) 875 Mg-125 Mg Tablet, 1 EACH PO BID for 7 Days, #14 TAB 0 Refills Prov:LUZMA PIERRE NP 12/11/23 Ibuprofen (Ibuprofen) 400 Mg Tablet, 400 MG PO Q6HPRN, #15 TAB 0 Refills Prov:JOYCE BRENNAN NP 02/27/23 Amoxicillin/Potassium Clav (Augmentin 500-125 Tablet) 1 Each Tablet, 1 EACH PO TID for 7 Days, #21 TAB Prov:JOYCE BRENNAN NP 02/27/23 Ibuprofen (Ibuprofen) 600 Mg Tablet, 600 MG PO Q6H PRN for PAIN, #15 TAB Prov:KATHERINE DEL CASTILLOP 10/19/22 Sulfamethoxazole/Trimethoprim (Bactrim Ds Tablet) 1 Each Tablet, 1 TAB PO BID for 7 Days, #14 TAB 0 Refills Prov:KATHERINE DEL [place] 10/19/22 Acetaminophen with Codeine (Acetaminophen-Cod #3 Tablet) 1 Each Tablet, 1-2 TAB PO Q6H PRN for woody anal abscess, #20 TAB Prov:ANN GAINES 04/26/22 Clindamycin HCl (Clindamycin HCl) 300 Mg Capsule, 1 CAP PO QID for 10 Days, #40 CAP 0 Refills Prov:ANN GAINES NICOLÁS 04/26/22 Past Medical History Past Medical History: No Pertinent History Surgical History: Tonsillectomy Family History: Negative Social History: Negative History: Not Applicable : 2 Para: 1 Aborts: 0 Review of System Dictation CONSTITUTIONAL: NEGATIVE EXCEPT FOR HPI HEAD/FACE: NEGATIVE EXCEPT FOR HPI EENT: NEGATIVE EXCEPT FOR HPI RESPIRATORY: NEGATIVE EXCEPT FOR HPI GASTROINTESTINAL/ABDOMINAL: NEGATIVE EXCEPT FOR HPI NAUSEA VOMITING GENITOURINARY: NEGATIVE EXCEPT FOR HPI MUSCULOSKELETAL: NEGATIVE EXCEPT FOR HPI INTEGUMENTARY: NEGATIVE EXCEPT FOR HPI NEUROLOGICAL/PSYCH: NEGATIVE EXCEPT FOR HPI HEMATOLOGIC/LYMPHATIC: NEGATIVE EXCEPT FOR HPI ALL SYSTEMS NEGATIVE, EXCEPT NOTED ABOVE. 13 POINT REVIEW OF SYSTEMS ASSESSED AND ALL NEGATIVE EXCEPT FOR ABOVE. Initial Vital Sign VS Vital Signs Date Time Temp Pulse Resp B/P (MAP) Pulse Ox O2 Delivery O2 Flow Rate FiO2 01/26/25 14:51 98.1 89 16 116/69 99 Room Air 0 01/26/25 15:27 21 Physical Exam Dictation VITAL SIGNS REVIEWED GENERAL APPEARANCE: ALERT, ORIENTED X 3, NO ACUTE DISTRESS, WELL DEVELOPED, NOURISHED. HEAD AND FACE: NON-TRAUMATIC. EYES: PERRL, PINK CONJUNCTIVAS, EYELID NO TRAUMA, ANTERIOR CHAMBER WITH ARCUS SENILIS. EARS: PINNAS INTACT AND NO SIGNS OF TRAUMA OR ERYTHEMA EAR CANALS CLEAR AND NO DISCHARGE TM NO ERYTHEMA NOSE: NO DISCHARGE, NO BLEEDING. OROPHARYNX: MOUTH NORMAL, TONGUE PINK, PHARYNX CLEAR,NO ERYTHEMA, TONSILS NO EXUDATES, NO ABSCESSES NOTED, MUCOUS MEMBRANE MOIST NECK: SUPPLE, NON-TENDER, NO THYROMEGALY, NO MASSES, NO JVD, NO BRUITS BREAST:DEFERRED CHEST:NO TENDERNESS, NO CREPITUS, NO PARADOXICAL MOVEMENT, NO RETRACTIONS LUNGS:CLEAR, WELL-VENTILATED, SYMMETRIC, NO RALES, NO WHEEZING, NO RHONCHI, NO STRIDOR, GOOD BREATH SOUNDS BILATERALLY HEART: REGULAR RATE, REGULAR RHYTHM, NO MURMUR, NO GALLOPS VASCULAR: NO PERIPHERAL EDEMA, ABDOMEN: SOFT, POSITIVE BOWEL SOUNDS, NONDISTENDED, NO GUARDING, NONTENDER, NO REBOUND, NO MASSES NO HEPATOMEGALY, NO SPLENOMEGALY, NO HEMPHILL'S SIGN, NO HERNIAS. HEART TONES 167 PER MARY MIRANDA RECTAL: DEFERRED GENITAL: DEFERRED NEUROLOGICAL: NORMAL SPEECH, MOTOR FUNCTION INTACT, SENSORY FUNCTION INTACT MUSCULOSKELETAL: NECK NONTENDER, FULL RANGE OF MOTION, BACK NONTENDER, FULL RANGE OF MOTION, EXTREMITIES: NONTENDER, FULL RANGE OF MOTION SKIN: COLOR PINK, DRY, NO TURGOR, NO RASH, NO LACERATIONS, NO ABRASIONS, NO CONTUSIONS. LYMPHATIC: DEFERRED Results (Laboratory/Radiology) Laboratory/Radiology Laboratory Tests Test 01/26/25 15:11 White Blood Count 13.5 K/uL (4.8-10.8) H Red Blood Count 4.76 MIL/uL (4.00-5.50) Hemoglobin 11.6 g/dL (12.0-16.0) L Hematocrit 35.8 % (36-48) L Mean Corpuscular Volume 75.2 fL (80-100) L Mean Corpuscular Hemoglobin 24.4 pg (27.0-33.0) L Mean Corpuscular Hemoglobin Concent 32.4 g/dL (32.0-36.0) Red Cell Distribution Width 16.2 % (11.0-15.5) H Platelet Count 302 K/uL (130-400) Mean Platelet Volume 9.4 fL (7.5-10.5) Immature Granulocyte % (Auto) 0.5 % (0-1) Neutrophils (%) (Auto) 75.5 % (40.0-77.0) Lymphocytes (%) (Auto) 16.5 % (21.0-51.0) L Monocytes (%) (Auto) 6.9 % (3.0-13.0) Eosinophils (%) (Auto) 0.4 % (0.0-8.0) Basophils (%) (Auto) 0.2 % (0.0-5.0) Neutrophils # (Auto) 10.2 K/uL (1.8-7.7) H Lymphocytes # (Auto) 2.2 K/uL (1.0-4.8) Monocytes # (Auto) 0.9 K/uL (0.1-1.0) Eosinophils # (Auto) 0.05 K/uL (0.00-0.70) Basophils # (Auto) 0.03 K/uL (0.00-0.20) Absolute Immature Granulocyte (auto 0.07 K/uL (0-1) Nucleated Red Blood Cells 0.0 % (0.0-0.19) Red Blood Cell Morphology See comments Sodium Level 137 mmol/L (136-145) Potassium Level 3.6 mmol/L (3.5-5.1) Chloride Level 103 mmol/L (101-111) Carbon Dioxide Level 25 mmol/L (21-32) Blood Urea Nitrogen 8 mg/dL (7-18) Creatinine 0.5 mg/dL (0.5-1.0) Glomerular Filtration Rate Calc 138 mL/min (>90) Random Glucose 78 mg/dL (70-105) Total Calcium 9.4 mg/dL (8.5-10.1) Human Chorionic Gonadotropin, Quant 17622 mIU/mL (0-5) H Labs Reviewed?: Yes ED Course ED Course Orders Procedure Category Date Status Time Cbc With Differential LAB 01/26/25 Complete 14:58 Hcg,Quantitative LAB 01/26/25 Complete 14:58 0.9%Nacl 1000ml (Ns PHA 01/26/25 Complete 1000ml) 15:00 Ondansetron 4mg Inj PHA 01/26/25 Complete (Zofran 4mg Inj) 15:00 Type And Screen BBK 01/26/25 Complete 14:58 Basic Metabolic Panel LAB 01/26/25 Complete 14:58 *Nursing CPOE 01/26/25 Transmitted Communication: 14:58 Current Medications Medications (Trade) Dose Ordered Sig/Marge Route PRN Reason Start Time Stop Time Status Last Admin Dose Admin Ondansetron HCl (zoFRAN 4MG INJ) 4 mg ONCE ONCE IVP 01/26/25 15:00 01/26/25 15:05 DC 01/26/25 15:17 Sodium Chloride 1,000 ml @ 0 mls/hr ONCE ONCE IV 01/26/25 15:00 01/26/25 15:05 DC 01/26/25 15:17 Vital Signs Date Time Temp Pulse Resp B/P (MAP) Pulse Ox O2 Delivery O2 Flow Rate FiO2 01/26/25 15:27 98.1 85 16 115/65 98 Room Air* 0 21 01/26/25 14:51 98.1 89 16 116/69 99 Room Air 0 1710/PATIENT STATES SHE FEELS BETTER AFTER FLUIDS AND ZOFRAN. SHE WILL BE DISCHARGED HOME WITH ZOFRAN TOLD TO SEE HER INFECTION CONTROL PRACTITIONER DOCTOR NEXT WEEK WITHOUT FAIL FOR MANAGEMENT Medical Decision Making MDM MEDICAL DISCHARGE MAKING BASED ON BASIC LABS WITH IV FLUIDS AND ZOFRAN. PATIENT , HEART TONES 167 PATIENT PRESCRIBED ZOFRAN FOR VOMITING. STATES SHE FEELS BETTER AFTER IV FLUIDS AND ZOFRAN TOLD SEE HER INFECTION CONTROL PRACTITIONER DOCTOR ON TUESDAY WITHOUT FAIL FOR MANAGEMENT DX & DISP Disposition: Discharge Departure Impression: Primary Impression: Hyperemesis gravidarum Additional Impression: Anemia during Condition: Stable Scripts Ondansetron (Ondansetron Odt) 4 Mg Tab.rapdis 1 TAB PO Q6HPRN PRN for nausea/vomiting for 4 Days, #16 TAB 0 Refills Prov: LUZMA PIERRE WEB COORDINATOR 01/26/25 Additional Instructions: FOLLOW-UP WITH PRIMARY CARE PROVIDER IN 1 TO 2 DAYS. TAKE MEDICATIONS DIRECTED HERE IN THE EMERGENCY ROOM. OKAY TO CONTINUE HOME MEDICATIONS UNLESS OTHERWISE DISCUSSED DURING YOUR VISIT IN THE EMERGENCY ROOM TODAY. RETURN TO YOUR NEAREST EMERGENCY ROOM IF SYMPTOMS WORSEN OR IF THERE IS NO IMPROVEMENT. CALL 911 IF YOU NEED IMMEDIATE ASSISTANCE. TAKE TYLENOL OR MOTRIN [id number] NEEDED AND IF NO CONTRAINDICATIONS ARE PRESENT. INCREASE ORAL HYDRATION. A WOUND CULTURE OR URINE CULTURE WAS ORDERED HERE IN THE EMERGENCY ROOM DEPARTMENT PLEASE FOLLOW-UP WITH PRIMARY CARE PROVIDER AND ADVISE THEM TO GET REPEAT PORTS FROM OUR FACILITY. IF YOU HAD ANY SHANNON WRAP/SPLINTS THAT WERE APPLIED HERE, PLEASE DO NOT REMOVE THEM UNTIL YOU SEE YOUR PRIMARY CARE OR SPECIALTY. EAT SMALL FREQUENT MEALS. , INCREASE YOUR FLUID INTAKE. , TAKE AND TAKE ZOFRAN DIRECTED FOR VOMITING. FOLLOW UP WITH YOUR INFECTION CONTROL PRACTITIONER DOCTOR ON TUESDAY WITHOUT FAIL FOR MANAGEMENT Referrals: GRETTA DAWKINS MD (PCP) Time of Disposition: 17:15 I have reviewed the case, and I agree with, Diagnosis and Plan LUZMA PIERRE NP January 26, 2025 15:01
[2025-01-26] MEDS: 0.9%NACL 1000ML 1,000 ML IV ONE (15:17)
[2025-01-26] MEDS: ondanSETRON 4MG INJ IVP ONE (15:17)
[2025-01-26 15:21] LABS: BASOPHILS # (AUTO) 0.03 K/uL (0.00-0.20); BASOPHILS % (AUTO) 0.2 % (0.0-5.0); EOSINOPHILS # (AUTO) 0.05 K/uL (0.00-0.70); EOSINOPHILS % (AUTO) 0.4 % (0.0-8.0); HEMATOCRIT 35.8 % (36-48); IMMATURE GRANULOCYTE ABSOLUTE 0.07 K/uL (0-1); LYMPHOCYTES # (AUTO) 2.2 K/uL (1.0-4.8); LYMPHOCYTES % (AUTO) 16.5 % (21.0-51.0); MEAN CORPUSCULAR HEMOGLOBIN 24.4 pg (27.0-33.0); MEAN CORPUSCULAR HGB CONC 32.4 g/dL (32.0-36.0); MEAN CORPUSCULAR VOLUME 75.2 fL (80-100); MONOCYTES # (AUTO) 0.9 K/uL (0.1-1.0); MONOCYTES % (AUTO) 6.9 % (3.0-13.0); NEUTROPHILS # (AUTO) 10.2 K/uL (1.8-7.7); NEUTROPHILS % (AUTO) 75.5 % (40.0-77.0); PLATELET COUNT (AUTO) 302 K/uL (130-400); RED BLOOD CELL COUNT(AUTO) 4.76 MIL/uL (4.00-5.50); RED CELL DISTRIBUTION WIDTH 16.2 % (11.0-15.5); WHITE BLOOD COUNT (AUTO) 13.5 K/uL (4.8-10.8)
[2025-01-26 15:32] LABS: CREATININE 0.5 mg/dL (0.5-1.0); POTASSIUM 3.6 mmol/L (3.5-5.1)
--- NOTE | 2025-01-26 17:06 | NUR ---
FHT DETECTED 172 BPM
[2025-01-26] MEDS ORDERED: ONDA-243 PO (17:17)
[2025-01-26 17:23] VITALS: BP 118/62; PULSE 82; RESP 16; TEMP 98.1; O2SAT 98
== END 2025-01-26 17:29 | disposition home or self-care (01) ==
LOC: EDH 14:41
DX: O21.0 Mild hyperemesis gravidarum (principal); O99.011 Anemia complicating pregnancy, first trimester; O26.891 Other specified pregnancy related conditions, first trimester; R10.2 Pelvic and perineal pain; Z3A.10 10 weeks gestation of pregnancy; Z90.89 Acquired absence of other organs; Z79.899 Other long term (current) drug therapy
CPT/HCPCS: 99283; 96374; 96361; 80048; 84702; 85025; 86850; 86900; 86901; 36415; J7030; J2405